=== PATIENT | female | born 1940 | race Caucasian/White ===

== ENCOUNTER → 2024-09-13 10:40 | Outpatient (REF) | payer OTHER, SELFPAY | LOC: RAD 10:40 | PROVIDERS: ATTENDING PHYSICIAN Internal Medicine | DX: R60.0 Localized edema (principal); M25.511 Pain in right shoulder | CPT/HCPCS: 73030; 93971 ==

== ENCOUNTER 2024-09-13 13:48 | Emergency (ER) | payer OTHER, SELFPAY ==
[2024-09-13 13:49] VITALS: BP 198/95
[2024-09-13 16:16] VITALS: BP 143/76
--- NOTE | 2024-09-13 16:26 | ED.GENMED ---
History of Present Illness
General
Chief Complaint: Musculo-Skeletal Complaint
Source: patient
Exam Limitations: none
Time Seen by Provider: 09/13/24 16:17
Nursing documentation reviewed up to this point in time: agreed with
History of Present Illness
History of Present Illness:
This is a 84 y/o female with pmh of hypertension, hyperlipidemia, who presents emergency department today with concerns of right shoulder pain for the past month. Patient does not recall an inciting injury to the pain, she believes she may have
fallen. Patient has been doing PT for this pain. She uses a walker and electric wheelchair at baseline. She started to develop swelling in the arm a few days ago which concerned her. She saw her PCP who ordered a ultrasound of the upper
extremity as well as x-ray. Ultrasound was negative for DVT. X-ray revealed possible humeral head fracture. Patient was sent to the emergency department for further evaluation.
Past History
Past History
ED Past Medical History: Cancer (Endometrial CA s/p internal radiation), HTN, Hypercholesterolemia, Other (PE, DVT) and Other (Morbidly obese)
ED Past Surgical History: Cholecystectomy, Orthopedic and Other
Social History
Tobacco: Non-smoker
Alcohol: None
Drug: None
Personal:
Living: alone ([facility])
Employment: Retired
Family History
Family History: Other (Noncontributory)
Review of Systems
Review of Systems
All Other Systems: ROS reviewed and negative except as documented in HPI and ROS
Phy Exam
Physical Exam
Physical Exam:
General: Patient is well appearing and in no acute distress; non-toxic
Skin: Warm and dry, no rashes or lesions
Head: Normocephalic, atraumatic
Eyes: Sclera non-icteric. EOMs intact.
Cardiac: Regular rate and rhythm, no murmurs
Peripheral Vascular: Right upper extremity swelling noted, 2+ brachial pulse
Pulm: Normal respiratory effort
Musculoskeletal: No bony tenderness palpation of the right shoulder joint. Limited abduction.
Neuro: CN II-XII intact, no focal neurologic deficits. Sensation intact.
Psychiatric: Appropriate mood and affect.
Course
Orders/Labs/Results
Orders:
Orders
09/13/24 16:49
CT Upper Ext W/o Iv Cont Rt Urgent
Comment:
Reason For Exam: Right shoulder pain and swelling
09/13/24 17:51
Acetaminophen [Tylenol] 1,000 mg PO NOW STA
Vital Signs
Initial and Last Documented VS:
Initial Vital Signs
Pulse Resp BP Pulse Ox
53 20 198/95 99
09/13/24 13:49 09/13/24 13:49 09/13/24 13:49 09/13/24 13:49
Last Documented Vital Signs
Temp Pulse Resp BP Pulse Ox
97.4 F 56 20 143/76 96
09/13/24 17:04 09/13/24 16:16 09/13/24 16:16 09/13/24 16:16 09/13/24 16:16
MDM/Problems Addressed
Differential Diagnosis Includes:
shoulder fracture, contusion, dependent edema
MDM/Problems Addressed:
84-year-old female with a past medical history of hypertension, hyperlipidemia was sent to the emergency department today with concerns of right shoulder for the past month. Was sent due to abnormal x-ray. X-ray revealed potential humerus fracture
of the head. Reviewed case with orthopedics considering is a subacute fracture. Recommended CAT scan, patient was sent for CAT scan which revealed severe degenerative changes but no evidence of CT evidence of fracture. Reviewed this with patient.
Patient stable to return home, she lives in independent living at [facility] and is able to get around with her walker without any issue. Patient stable for discharge.
*Pulse Oximetry
Patient hypoxic: no
*Critical Care Note
Total Time (30-74mins, 75-104mins- exclusive of procedures): Not Applicable
Data Reviewed
Review of Other/Old Records Reveals: Records (Reviewed ER physician augmentation from 04/30/2023 patient seen for umbilical hernia, reviewed discharge summary from 03/03/2023 patient seen for abdominal pain and nausea found to have a small bowel
obstruction)
Source: patient and records
Patient Management
Escalation/DeEscalation of care consider admission/obs:
case reviewed with my attending, patient stable for discharge
ED Attending Note
-
Portions of this chart may have been created with voice recognition software.� Occasional wrong word or��sound alike� substitutions may have occurred due to the inherent limitations of voice recognition software.
Discharge Plan
Departure
Patient Disposition: Home (Routine Discharge)
Date of Disposition: 09/13/24
Time of Disposition: 19:51
Patient with high blood pressure during this ER visit?: Yes
Condition: Good
Discharge Problem:
Pain in right shoulder, Swelling
Instructions: Shoulder pain - ED discharge instructions, BLOOD PRESSURE
Prescriptions:
No Action
atorvastatin 10 MG tablet
10 mg PO HS
metoprolol succinate 25 MG tablet extended release 24 hr
25 mg PO DAILY
calcium carbonate [Oyster Shell Calcium 500] 500 MG tablet
500 mg PO DAILY
gabapentin 100 mg capsule
100 mg PO TID Qty: 30 0RF
cholecalciferol (vitamin D3) 25 mcg (1,000 unit) Tablet
25 mcg PO DAILY
Eliquis 5 mg tablet
5 mg PO BID
cyanocobalamin (vitamin B-12) 1,000 mcg Tablet
1,000 mcg PO DAILY
levocetirizine [Xyzal] 5 mg Tablet
5 mg PO HS
oxybutynin chloride 10 mg Tablet Extended Release 24hr
10 mg PO HS
miconazole nitrate 2 % Cream
1 applic TOPICAL DAILY
sennosides [senna] 8.6 mg tablet
8.6 mg PO DAILY
miconazole nitrate [Miconazorb AF] 2 % powder
1 applic topical DAILY
Referrals:
Gale Tobin, [Family Provider] -
Activity Restrictions/Additional Instructions:
Please follow up with your primary care provider.
Please continue physical therapy.
PLEASE RETURN EMERGENCY DEPARTMENT SHOULD YOU DEVELOP INABILITY TO AMBULATE, ACUTE WORSENING OF YOUR PAIN, CHEST PAIN, SHORTNESS OF BREATH, WEAKNESS IN ONE-SIDED BODY VERSUS OTHER, OR ANY OTHER SIGNS OR SYMPTOMS WORRISOME TO YOU
Interventions
Interventions:
*Risk Screen - Suicide Last Done: 09/13/24 13:49
*General Assessment Last Done: 09/13/24 13:49
*ED COVID-19 Vaccine History Last Done: 09/13/24 13:49
*Nursing Disposition Last Done: 09/13/24 20:35
ED-Musculoskeletal Assessment Last Done: 09/13/24 17:04
Discharge Date and Time
Discharge Date/Time: 09/13/24 20:36
Print Language: MAORI
[2024-09-13] MEDS: TYLENOL 1000 MG PO (18:07)
== END 2024-09-13 20:36 | disposition home or self-care (01) ==
LOC: EMR 13:48
PROVIDERS: EMERGENCY PHYSICIAN Emergency Medicine; FAMILY PHYSICIAN Internal Medicine
DX: M19.011 Primary osteoarthritis, right shoulder (principal); E78.00 Pure hypercholesterolemia, unspecified; I10 Essential (primary) hypertension; Z86.718 Personal history of other venous thrombosis and embolism; Z90.49 Acquired absence of other specified parts of digestive tract
CPT/HCPCS: 99284; 73200

== ENCOUNTER → 2024-10-10 13:53 | Outpatient (REF) | payer OTHER, SELFPAY | LOC: HWWDC 13:53 | PROVIDERS: ATTENDING PHYSICIAN Internal Medicine | DX: Z12.31 Encounter for screening mammogram for malignant neoplasm of breast (principal) | CPT/HCPCS: 77063; 77067 ==

== ENCOUNTER 2024-11-13 06:04 | Emergency (ER) | payer OTHER, SELFPAY ==
[2024-11-13] VITALS (16 sets, daily range): BP systolic 115–144; BP diastolic 45–100; PULSE 68–80; O2SAT 91–95; BMI 57.2
--- NOTE | 2024-11-13 06:23 | ED.MUSCINJ ---
HPI-Injury
General
Chief Complaint: Fall
Source: patient
Exam Limitations: none
Time Seen by Provider: 11/13/24 06:10
History of Present Illness-Injury
Initial Injury comments:
84-year-old female on Eliquis for history of pulmonary embolism presents from [facility] independent living via EMS weakness and a fall. She went to sit on her chair and her legs felt weak and she missed her chair. She denies any injury
sustained from the fall. This is her second fall in 3 days. She does note an ongoing nagging cough. She denies fever. She denies urinary symptoms. She notes a decreased appetite. She typically ambulates with a walker or electric wheelchair. No
other complaints.
Past History
Past History
ED Past Medical History: Cancer (Endometrial CA s/p internal radiation), HTN, Hypercholesterolemia, Other (PE, DVT) and Other (Morbidly obese)
ED Past Surgical History: Cholecystectomy, Orthopedic and Other
Social History
Tobacco: Non-smoker
Alcohol: None
Drug: None
Personal:
Living: alone ([facility])
Employment: Retired
Family History
Family History: Other (Noncontributory)
Phy Exam
Physical Exam
Physical Exam:
General: Well developed, obese female no acute distress
HEENT: NC, no signs of trauma
Heart: RRR, no murmurs
Lungs: Body habitus limits exam but no obvious wheeze or rales
Ext: No cyanosis, mild pitting edema
Neuro: alert and oriented, no unilateral weakness noted
skin: Warm, no rash
Injury Course
Orders/Labs/Results
Orders:
Orders
11/13/24 06:22
CT Head W/o Iv Contrast Urgent
Comment:
Reason For Exam: falls, weakness
CR Chest - 2 Views Urgent
Comment:
Reason For Exam: cough
11/13/24 06:44
Orthostatic VS- Treatment ONCE
PT Consult [Pt Eval And Treat] Urgent
Activity Level: Ambulate
11/13/24 07:07
COVID-19 Antigen Urgent
Source: Nasal Swab
Complete Blood Count/With Diff Urgent
Influenza A+B Rapid Molecular Urgent
[place] Source: Nasal Swab
Specimen Description:
11/13/24 10:16
Case Management Consult ONCE
Case Management Consult: Discharge Planning
11/13/24 11:00
Occupational Therapy Consult [Ot Eval And Treat] Urgent
11/13/24 13:23
Basic Metabolic Panel Urgent
11/13/24 14:16
Calcium Carbonate [Oscal Jan 500] 500 mg PO NOW STA
Abnormal Lab Results
11/13/24 11/13/24
07:07 13:23
WBC 11.4 H 10^3/uL
(4.8-10.8)
RBC 3.82 L 10^6/uL
(4.20-5.40)
Hgb 10.6 L g/dL
(12.0-16.0)
Hct 33.5 L %
(37.0-47.0)
MCHC 31.6 L g/dL
(33.0-37.0)
RDW 14.8 H %
(11.5-14.5)
Abs Immat Gran (auto) 0.1 H 10^3/uL
(0-0.05)
Absolute Neuts (auto) 10.0 H 10^3/uL
(1.4-6.5)
Absolute Lymphs (auto) 0.5 L 10^3/uL
(1.2-3.4)
Absolute Monos (auto) 0.8 H 10^3/uL
(0.1-0.6)
Neutrophils % 87.4 H %
(42.2-75.2)
Lymphocytes % 4.5 L %
(20.5-51.1)
Chloride 112 H mmol/L
(98-107)
Carbon Dioxide 21 L mmol/L
(22-30)
BUN 33 H mg/dl
(7-17)
Calcium 6.8 L* mg/dl
(8.4-10.2)
11/13/24 07:07
11/13/24 13:23
MDM/Problems Addressed
Differential Diagnosis Includes:
Patient here with 2 falls in 3 days and generalized weakness. No specific finding or localizing finding on exam. Differential is broad but includes electrolyte abnormality versus anemia versus infectious cause. Patient is on Eliquis and she has
been following, worried about intracranial injury. CT of the head pending basic labs chest x-ray COVID flu urinalysis pending
*Critical Care Note
Total Time (30-74mins, 75-104mins- exclusive of procedures): Not Applicable
Update Note
Update Note:
Workup mostly unrevealing. CT head negative chest x-ray without concerning findings. Patient seen and evaluated by physical therapy requires maximal assist just to get out of bed and was unable to ambulate. She felt weak on her feet. Not stable
for discharge back to independent living at [facility]. Consult case management for potential rehab placement
Case management able to place the patient into intermediate at [facility]. Transport arranged.
ED Attending Note
-
Portions of this chart may have been created with voice recognition software.� Occasional wrong word or��sound alike� substitutions may have occurred due to the inherent limitations of voice recognition software.
Discharge Plan
Departure
Patient Disposition: Acute Rehab Facility
Date of Disposition: 11/13/24
Time of Disposition: 13:36
Discharge Problem:
Weakness
Prescriptions:
No Action
atorvastatin 10 MG tablet
10 mg PO DAILY
metoprolol succinate 25 MG tablet extended release 24 hr
25 mg PO DAILY
gabapentin 100 mg capsule
100 mg PO TID Qty: 30 0RF
Eliquis 5 mg tablet
5 mg PO BID
cyanocobalamin (vitamin B-12) 1,000 mcg Tablet
1,000 mcg PO MOWEFR
levocetirizine [Xyzal] 5 mg Tablet
5 mg PO QPM
oxybutynin chloride 10 mg Tablet Extended Release 24hr
10 mg PO DAILY
acetaminophen [Tylenol Extra Strength] 500 mg Tablet
1,000 mg PO BID
bismuth subsalicylate [Kaopectate (bismuth subsalicy)] 262 mg/15 mL Suspension
524 mg PO ACHS
lidocaine HCl [Aspercreme (lidocaine HCl)] 4 % Cream
1 applic TOPICAL TID
Rx Instructions:
apply to R shoulder
Referrals:
Gale Tobin DO [Family Provider] -
Activity Restrictions/Additional Instructions:
Please seek further treatment at rehab facility. Your calcium was low. Please continue to take calcium daily and recheck blood work next week
Interventions
Interventions:
*Risk Screen - Suicide Last Done: 11/13/24 14:30
*General Assessment Last Done: 11/13/24 06:06
*Neglect/Abuse Screening Last Done: 11/13/24 06:06
*ED- Fall Risk Assessment Last Done: 11/13/24 06:06
*ED COVID-19 Vaccine History Last Done: 11/13/24 06:06
*Nursing Disposition Last Done: 11/13/24 14:30
ED-Musculoskeletal Assessment Last Done: 11/13/24 07:30
ED- Neurological Assessment Last Done: 11/13/24 07:30
ED-Skin Assessment Last Done: 11/13/24 09:13
Discharge Date and Time
Discharge Date/Time: 11/13/24 14:30
Print Language: SWEDISH
[2024-11-13 07:38] LABS: Hematocrit 33.5 % (37.0-47.0); Hemoglobin 10.6 g/dL (12.0-16.0); Mean Corp Hgb Conc. 31.6 g/dL (33.0-37.0); Mean Corpuscular Hgb 27.7 pg (27.0-31.0); Mean Corpuscular Volume 87.7 fL (81.0-99.0); Mean Platelet Volume 10.1 fL (7.4-10.4); Platelet Count 331 10^3/uL (130-400); Red Blood Cell Count 3.82 10^6/uL (4.20-5.40); Red Cell Dist. Width 14.8 % (11.5-14.5); White Blood Cell Count 11.4 10^3/uL (4.8-10.8)
[2024-11-13 08:02] LABS: COVID-19 Antigen Negative (Negative)
[2024-11-13 08:04] LABS: % Basophils 0.3 % (0-2); % Eosinophils 0.1 % (0-6); % Immature Granulocytes 0.5 % (0-0.5); % Lymphocytes 4.5 % (20.5-51.1); % Monocytes 7.2 % (1.7-9.3); % Neutrophils 87.4 % (42.2-75.2); Absolute Immature Granulocytes 0.1 10^3/uL (0-0.05); Absolute Lymphocytes 0.5 10^3/uL (1.2-3.4); Absolute Monocytes 0.8 10^3/uL (0.1-0.6); Nucleated Red Blood Cells % 0 %
--- NOTE | 2024-11-13 11:14 | CM ---
Addendum entered by Lorrie Acuna 11/13/24 13:21:
Pt accepted for admission to [facility] today
SNF will obtain [facility] auth and order nicole bed which will be available tomorrow
BLS scheduled with Acute Care and medical necessity on chart
Discharge Disposition- [facility] SNF via BLS (1400 pickup)
Phone- [phone]
Original Note:
ED CM consult for dc planning
Pt from [facility] where she resides alone
She is indep with transfers and ambulation in her home with use of a rollator
She utilizes her power wheelchair while outside of the home
Pt is on 1.5 L O2 nocturnal through her cpap ([employer])
She pays for a [employer] 3x weekly for bathing assistance
Current with outpt PT/OT through [facility]
SNF recs per PT
Pt brigitte greement with placement at [facility]
Call with admissions/Anastasia-referral sent via [facility]
OT eval requested for [facility] auth
Discharge Disposition- anticipate [facility]
[2024-11-13 13:56] LABS: Blood Urea Nitrogen 33 mg/dl (7-17); Calcium 6.8 mg/dl (8.4-10.2); Carbon Dioxide 21 mmol/L (22-30); Chloride 112 mmol/L (98-107); Estimated Creatinine Clearance 104 ml/min; Glucose 95 mg/dl (70-99); Sodium 138 mmol/L (135-145); eGFR > 60.00
[2024-11-13] MEDS: OSCAL CAL 500 500 MG PO (14:26)
== END 2024-11-13 14:30 ==
LOC: EMR 06:04
PROVIDERS: Physician Assistant; EMERGENCY PHYSICIAN Emergency Medicine; FAMILY PHYSICIAN Internal Medicine
DX: R53.1 Weakness (principal); I10 Essential (primary) hypertension; E78.00 Pure hypercholesterolemia, unspecified; Z86.718 Personal history of other venous thrombosis and embolism; Z86.711 Personal history of pulmonary embolism; Z79.01 Long term (current) use of anticoagulants; Z90.49 Acquired absence of other specified parts of digestive tract; Z11.52 Encounter for screening for COVID-19
CPT/HCPCS: 99284; 70450; 71046; 80048; 85025; 87502; 87811

== ENCOUNTER 2024-12-03 16:06 | Emergency (ER) | payer OTHER, SELFPAY ==
[2024-12-03 16:10] VITALS: BP 139/51; BMI 59.7
--- NOTE | 2024-12-03 16:16 | ED.GENMED ---
History of Present Illness
General
Chief Complaint: Fall
Source: patient, records and ambulance crew
Exam Limitations: none
Time Seen by Provider: 12/03/24 16:16
Nursing documentation reviewed up to this point in time: agreed with
History of Present Illness
History of Present Illness:
84-year-old female with history as noted presents to the emergency room from [facility] for evaluation after a slip and fall. Patient reports that she was going to the bathroom and unfortunately had some diarrhea and leaked stool onto the floor
before she could get onto the toilet. She says that she does have diarrhea from time to time and this is not necessarily unusual. She says that her daughter was with her and recommended she get in the shower to wash up. While patient was getting
into the shower she slipped and fell onto her bottom. She does not believe she hit her head, did not lose consciousness. She denies any significant complaints but did have to call EMS for lift assist. They recommended she come for hospital
evaluation given she is on blood thinners. She takes Eliquis for history of DVT. She denies any headache, neck pain, back pain, chest pain, pain in her extremities.
Past History
Past History
ED Past Medical History: Cancer (Endometrial CA s/p internal radiation), HTN, Hypercholesterolemia, Other (PE, DVT) and Other (Morbidly obese)
ED Past Surgical History: Cholecystectomy, Orthopedic and Other
Social History
Tobacco: Non-smoker
Alcohol: None
Drug: None
Personal:
Living: alone ([facility])
Employment: Retired
Family History
Family History: Other (Noncontributory)
Review of Systems
Review of Systems
All Other Systems: ROS reviewed and negative except as documented in HPI and ROS
Cardiac: Denies chest pain
ABD/GI: Denies abdominal pain or nausea
Musculoskeletal: Denies joint pain, neck pain or back pain
Neurological: Denies dizzy or headache
Phy Exam
Physical Exam
Physical Exam:
General: Awake, alert, oriented x3; no acute distress
Head: Normocephalic, atraumatic
Eyes: Conjunctiva normal, EOMI
Throat: Airway intact, handling secretions
Neck: Trachea midline, no cervical spine tenderness, full range of motion of the neck without pain
Back: No signs of trauma to the back or flank and no midline thoracic or lumbar tenderness
Lungs: Breathing comfortably no distress
Heart: Regular rate; no chest wall tenderness
Abd: Obese but soft, non distended, nontender
Neuro: No gross deficits
Skin: No lacerations or abrasions noted
Extremities: Atraumatic, no tenderness, allows for passive range of motion in the arms and legs without pain, extremities are warm and well-perfused
Scores
Heart Failure Risk
Heart Failure Risk Score: Not Applicable
Heart Score for Chest Pain Patients
STEMI patient?: Not applicable
Withdrawal Assessment of Alcohol
Withdrawal Assessment Completed?: Not applicable
Course
Orders/Labs/Results
Orders:
Orders
12/03/24 16:16
CT Head W/o Iv Contrast Urgent
Comment:
Reason For Exam: fall on blood thinners
CR Pelvis Comp Min 3 Views Urgent
Comment:
Reason For Exam: fall onto bottom
Vital Signs
Initial and Last Documented VS:
Initial Vital Signs
Temp Pulse Resp BP Pulse Ox
36.6 C 59 17 139/51 98
12/03/24 16:10 12/03/24 16:10 12/03/24 16:10 12/03/24 16:10 12/03/24 16:10
Last Documented Vital Signs
Temp Pulse Resp BP Pulse Ox
36.6 C 59 17 139/51 98
12/03/24 16:10 12/03/24 16:10 12/03/24 16:10 12/03/24 16:10 12/03/24 16:10
MDM/Problems Addressed
Differential Diagnosis Includes:
Fall on blood thinners�concern would be for mainly traumatic head injury
MDM/Problems Addressed:
84-year-old female presents after slip and fall; she is on blood thinners. He denies any acute complaints has not noted any injuries since the fall but given she is on blood thinners she came in for assessment. She denies any head strike but it
sounds like she fell with significant force onto her bottom�will check CT head as an abundance of caution. Similarly I think it would be reasonable to check x-ray of the pelvis based on mechanism and force. Will monitor and reassess after the
above.
CT head no acute pathology. X-ray the pelvis no fractures. Stable for discharge patient remains awake alert with no complaints.
Chronic conditions affecting care:
Obesity, PE on Eliquis
*Radiology
Radiology exam reviewed: radiology read reviewed
*Pulse Oximetry
Patient hypoxic: no
*Critical Care Note
Total Time (30-74mins, 75-104mins- exclusive of procedures): Not Applicable
Data Reviewed
Source: patient, records and ambulance crew
ED Attending Note
-
Portions of this chart may have been created with voice recognition software.� Occasional wrong word or��sound alike� substitutions may have occurred due to the inherent limitations of voice recognition software.
Discharge Plan
Departure
Patient Disposition: Home (Routine Discharge)
Date of Disposition: 12/03/24
Time of Disposition: 18:05
Patient with high blood pressure during this ER visit?: No
Discharge Problem:
Accident due to mechanical fall without injury
Instructions: Preventing falls in adults
Prescriptions:
No Action
atorvastatin 10 MG tablet
10 mg PO DAILY
metoprolol succinate 25 MG tablet extended release 24 hr
25 mg PO DAILY
gabapentin 100 mg capsule
100 mg PO TID Qty: 30 0RF
Eliquis 5 mg tablet
5 mg PO BID
cyanocobalamin (vitamin B-12) 1,000 mcg Tablet
1,000 mcg PO MOWEFR
levocetirizine [Xyzal] 5 mg Tablet
5 mg PO QPM
oxybutynin chloride 10 mg Tablet Extended Release 24hr
10 mg PO DAILY
acetaminophen [Tylenol Extra Strength] 500 mg Tablet
1,000 mg PO BID
bismuth subsalicylate [Kaopectate (bismuth subsalicy)] 262 mg/15 mL Suspension
524 mg PO ACHS
lidocaine HCl [Aspercreme (lidocaine HCl)] 4 % Cream
1 applic TOPICAL TID
Rx Instructions:
apply to R shoulder
Referrals:
Gale Tobin, DO [Family Provider] - As needed
Activity Restrictions/Additional Instructions:
Thank you for visiting the Emergency Department at [facility].
1. Please schedule a follow up appointment as directed. Call first thing tomorrow morning to make an appointment.
2. If indicated, please take your medications as instructed and indicated on discharge paperwork.
3. If any of your symptoms do not improve, or persist, or become more severe within 6-12 hours, please return to the emergency department for further care.
4. Please return to the emergency department if you develop a headache, neck pain/stiffness, fever greater than 100.4F, chest pain, shortness of breath, persistent nausea, vomiting, slurred speech, difficulty walking, numbness/tingling, weakness,
signs of infection or any other symptoms that are worrisome to you.
Please call [phone] if you have any questions.
Interventions
Interventions:
*Risk Screen - Suicide Last Done: 12/03/24 16:10
*General Assessment Last Done: 12/03/24 16:10
*Neglect/Abuse Screening Last Done: 12/03/24 16:10
*ED- Fall Risk Assessment Last Done: 12/03/24 16:10
ED-Musculoskeletal Assessment Last Done: 12/03/24 16:37
ED- Neurological Assessment Last Done: 12/03/24 16:37
ED-Skin Assessment Last Done: 12/03/24 16:37
Discharge Date and Time
Print Language: MAURITANIAN
[2024-12-03 21:17] VITALS: BP 138/50
== END 2024-12-03 21:20 | disposition home or self-care (01) ==
LOC: EMR 16:06
PROVIDERS: EMERGENCY PHYSICIAN Emergency Medicine; FAMILY PHYSICIAN Internal Medicine
DX: S39.93XA Unspecified injury of pelvis, initial encounter (principal); R19.7 Diarrhea, unspecified; W01.0XXA Fall on same level from slipping, tripping and stumbling without subsequent striking against object, initial encounter; Y93.01 Activity, walking, marching and hiking; Y92.89 Other specified places as the place of occurrence of the external cause; E78.00 Pure hypercholesterolemia, unspecified; E66.01 Morbid (severe) obesity due to excess calories; M19.90 Unspecified osteoarthritis, unspecified site; I12.9 Hypertensive chronic kidney disease with stage 1 through stage 4 chronic kidney disease, or unspecified chronic kidney disease; N18.2 Chronic kidney disease, stage 2 (mild); F41.9 Anxiety disorder, unspecified; F32.A Depression, unspecified; Z79.01 Long term (current) use of anticoagulants; Z99.81 Dependence on supplemental oxygen; Z86.718 Personal history of other venous thrombosis and embolism; Z86.711 Personal history of pulmonary embolism; Z85.42 Personal history of malignant neoplasm of other parts of uterus; Z90.49 Acquired absence of other specified parts of digestive tract; Z88.5 Allergy status to narcotic agent; Z88.0 Allergy status to penicillin; Z91.040 Latex allergy status
CPT/HCPCS: 99284; 70450; 72190

== ENCOUNTER 2025-01-22 16:40 | Inpatient (IN) | payer OTHER, SELFPAY ==
[2025-01-22] VITALS (9 sets, daily range): BP systolic 135–196; BP diastolic 48–89; BMI 59.3; BMI 57.3
[2025-01-22 13:28] LABS: Hematocrit 30.2 % (37.0-47.0); Hemoglobin 8.9 g/dL (12.0-16.0); Mean Corp Hgb Conc. 29.5 g/dL (33.0-37.0); Mean Corpuscular Volume 83.2 fL (81.0-99.0); Nucleated Red Blood Cells % 0 %; Platelet Count 320 10^3/uL (130-400); Red Cell Dist. Width 15.9 % (11.5-14.5)
[2025-01-22 13:58] LABS: ALT (SGPT) 10 U/L (0-35); AST (SGOT) 16 U/L (14-36); Albumin 3.7 g/dl (3.5-5.0); Alkaline Phosphatase 108 U/L (38-126); Blood Urea Nitrogen 19 mg/dl (7-17); Calcium 9.6 mg/dl (8.4-10.2); Carbon Dioxide 34 mmol/L (22-30); Chloride 102 mmol/L (98-107); Estimated Creatinine Clearance 100 ml/min; Glucose 124 mg/dl (70-99); Potassium 4.9 mmol/L (3.5-5.1); Sodium 138 mmol/L (135-145); Total Protein 6.4 g/dl (6.3-8.2); eGFR > 60.00
--- NOTE | 2025-01-22 14:58 | ED.GENMED ---
History of Present Illness
General
Chief Complaint: Breathing Problem
Source: patient
Exam Limitations: none
Time Seen by Provider: 01/22/25 14:21
Nursing documentation reviewed up to this point in time: agreed with
History of Present Illness
History of Present Illness:
84-year-old female
With a history of morbid obesity, hypertension, PE on Eliquis, edema on Bumex who presents for increasing shortness of breath especially on exertion over the last couple of weeks. Patient had been seen on 5�11 for a mechanical fall and was in PT OT
since then for some shoulder discomfort. Patient has noticed that with activity over the last week she has had some windedness. Specifically this morning the patient got up to just get to her chair which is very short distance patient was very
short of breath. She wears oxygen through her CPAP only 1.5 l at night and otherwise does not need oxygen during the day.
She has seen the physician at [facility] within the last 2 weeks for some of this dyspnea on exertion who was concerned and wanted her to have an outpatient chest abdomen pelvis CT which the patient has not had yet. They also are noticing that her
hemoglobin is dropping. Our records show that it was 10 back in October and now it is 8.9. She has not noticed any dark stool.
But she does report significant edema in her legs and abdomen, she also is noncompliant with her Bumex because she has to get up and go to the bathroom when she uses it so she does not take it at all. She does noticed that her legs look
significantly more swollen than usual. Patient is very compliant with her Eliquis however.
Past History
Past History
ED Past Medical History: Cancer (Endometrial CA s/p internal radiation), HTN, Hypercholesterolemia, Other (PE, DVT) and Other (Morbidly obese)
ED Past Surgical History: Cholecystectomy, Orthopedic and Other
Social History
Tobacco: Non-smoker
Alcohol: None
Drug: None
Personal:
Living: alone ([facility])
Employment: Retired
Family History
Family History: Other (Noncontributory)
Review of Systems
Review of Systems
Allergies reviewed?: Yes
All Other Systems: Not applicable
Phy Exam
Physical Exam
Physical Exam:
GENERAL: Alert , elevated BMI
EYE: pupils equal and reactive
NECK: Supple
ENT: o/p clr, mmm.
CARDIAC: Regular rate and rhythm .
LUNGS: Diminished, crackles at bases, significant bilateral lower extremity edema
ABDOMEN: Soft, without focal tenderness, no r/g, no cvat, normal bowel sounds
NEUROLOGICAL: Alert and oriented, no focal neuro deficits
SKIN: Warm and dry, skin intact.
MUSCULOSKELETAL: Severe edema, lymphedema , neg anette's sign
PSYCH: Normal and appropriate interaction.
Course
Orders/Labs/Results
Orders:
Orders
01/22/25 12:52
Electrocardiogram (*1) Urgent
Reason for Study: Other
Other Reason for Exam: Respiratory Distress
EKG- Treatment ONCE
O2 Therapy [RESP] Urgent
Titrate/Wean O2 to maintain O2 sat greater than (%): 93
Special Instructions: TO MAINTAIN CONTINUOUS O2 SATS >/= 93%
01/22/25 13:12
Complete Blood Count/With Diff Urgent
Comprehensive Metabolic Panel Urgent
NT-proBNP Urgent
01/22/25 14:57
Pantoprazole [Protonix IV] 40 mg IV NOW STA
01/22/25 14:58
CR Chest Portable - 1 View Urgent
Comment:
Reason For Exam: sob, edema
Reason Study Needs to be Portable: Unable to Transport
01/22/25 15:06
Sterile Water [Sterile Water For Injection] 10 ml .ROUTE .[facility]-MED ONE
01/22/25 15:35
Bumetanide [Bumex] 1 mg IV NOW STA
Abnormal Lab Results
01/22/25
13:12
RBC 3.63 L 10^6/uL
(4.20-5.40)
Hgb 8.9 L g/dL
(12.0-16.0)
Hct 30.2 L %
(37.0-47.0)
MCH 24.5 L pg
(27.0-31.0)
MCHC 29.5 L g/dL
(33.0-37.0)
RDW 15.9 H %
(11.5-14.5)
Absolute Lymphs (auto) 0.8 L 10^3/uL
(1.2-3.4)
Absolute Monos (auto) 0.7 H 10^3/uL
(0.1-0.6)
Lymphocytes % 12.3 L %
(20.5-51.1)
Monocytes % 9.5 H %
(1.7-9.3)
Carbon Dioxide 34 H mmol/L
(22-30)
BUN 19 H mg/dl
(7-17)
Glucose 124 H mg/dl
(70-99)
01/22/25 13:12
01/22/25 13:12
Vital Signs
Initial and Last Documented VS:
Initial Vital Signs
Temp Pulse Resp BP Pulse Ox
36.6 C 59 20 158/66 89
01/22/25 12:55 01/22/25 12:55 01/22/25 12:55 01/22/25 12:55 01/22/25 12:55
Last Documented Vital Signs
Temp Pulse Resp BP Pulse Ox
36.6 C 62 13 171/84 96
01/22/25 12:55 01/22/25 15:00 01/22/25 15:00 01/22/25 14:00 01/22/25 15:03
MDM/Problems Addressed
Differential Diagnosis Includes:
CHF, pneumonia, sleep apnea, less likely PE, deconditioning
MDM/Problems Addressed:
84-year-old female, morbidly obese from [place] run normally not needing oxygen except for during the night through her CPAP, history of PE on Eliquis presents for significant shortness of breath on exertion over the last 2 weeks, worse specifically
today without chest pain. She has significant lymphedema which is worse than usual she says but she is noncompliant with her Bumex because of the fact that it is difficult for her to get up
Patient is not having any chest pain. She does have a slight cough. She has not noticed any black stool but has had downtrending hemoglobins and is heme positive here light brown stool. Patient is stable on 2 L but has crackles in her bases and
clearly is fluid overloaded. Her BNP is likely falsely normal due to her BMI. Will obtain x-ray and admit
*Pulse Oximetry
SaO2: 96
Nasal Cannula flow liters per minute: 2
Oxygen Mode of Delivery: Room air
ED Attending Note
-
Portions of this chart may have been created with voice recognition software.� Occasional wrong word or��sound alike� substitutions may have occurred due to the inherent limitations of voice recognition software.
Discharge Plan
Departure
Patient Disposition: Admit
Date of Disposition: 01/22/25
Time of Disposition: 15:35
Admit to: Telemetry
Presentation/result/management discussed w/ accepting MD/DO: Hospitalist
Covid-19: Not Applicable
Discharge Problem:
Pulmonary edema, Hypoxia, Anemia, Heme positive stool
Prescriptions:
No Action
atorvastatin 10 MG tablet
10 mg PO DAILY
metoprolol succinate 25 MG tablet extended release 24 hr
25 mg PO DAILY
gabapentin 100 mg capsule
100 mg PO TID Qty: 30 0RF
Eliquis 5 mg tablet
5 mg PO BID
cyanocobalamin (vitamin B-12) 1,000 mcg Tablet
1,000 mcg PO MOWEFR
levocetirizine [Xyzal] 5 mg Tablet
5 mg PO QPM
oxybutynin chloride 10 mg Tablet Extended Release 24hr
10 mg PO DAILY
acetaminophen [Tylenol Extra Strength] 500 mg Tablet
1,000 mg PO BID
bismuth subsalicylate [Kaopectate (bismuth subsalicy)] 262 mg/15 mL Suspension
524 mg PO ACHS
lidocaine HCl [Aspercreme (lidocaine HCl)] 4 % Cream
1 applic TOPICAL TID
Rx Instructions:
apply to R shoulder
Referrals:
Gale Tobin DO [Family Provider, Internal Medicine]
Interventions
Interventions:
*Risk Screen - Suicide Last Done: 01/22/25 12:55
*General Assessment Last Done: 01/22/25 12:55
*Neglect/Abuse Screening Last Done: 01/22/25 12:55
*ED- Fall Risk Assessment Last Done: 01/22/25 12:55
*ED COVID-19 Vaccine History Last Done: 01/22/25 12:55
ED- Cardiac Assessment Last Done: 01/22/25 14:57
ED- Pulmonary Assessment Last Done: 01/22/25 12:55
Discharge Date and Time
Print Language: KYRGYZ
[2025-01-22] MEDS: PROTONIX IV 40 MG IV (15:14)
--- NOTE | 2025-01-22 15:39 | HPS.HSE ---
Family Physician
-
Family Physician: Gale Tobin
Chief Complaint
-
exertional dyspnea
History of Present Illness
Patient is a 84-year-old female with past medical history significant for hypertension, hyperlipidemia, morbid obesity, Hx pulmonary embolism and Hx endometrial cancer who presented to [facility] ED for evaluation of increased exertional dyspnea. Patient
reports seeing PT/OT regularly at [facility] where she resides in independent living. Patient has been seeing PT/OT since recent fall 12/03/2024. She reports that during therapy sessions she is noticing increased shortness of breath over the past
week. This morning when getting ready for appointment with therapy she reported getting exertional dyspnea with minimal movement from bed to chair. She called to cancel therapy and therapist recommended she seek an appointment with medical office.
She was seen in medical office where primary referred her to ED for further evaluation. Patient denies any fever, chills, chest pain, nausea, vomting, constipation, diarrhea or urinary symptoms. Patient has order for Bumex, which she reports was
ordered PRN and she does state she has not taken it in a long time.
Medical History
Past Medical History
Past Medical History: Reports Other
Additional Past Medical History:
hypertension
hyperlipidemia
morbid obesity
Hx pulmonary embolism
Hx endometrial cancer
Past Surgical History: Reports Other
Additional Past Surgical History:
cholecystectomy
b/l Knee replacement
Social History
Tobacco: Former Smoker
Alcohol: None
Drug: None
Personal: Single
Living: Alone
Employment: Retired
Family History
Family History: Not pertinent
Allergies / Home Medications
Allergies reflects when Allergies were last updated in [facility].
Home Medications with original date entered in [facility]
Allergy/Medication List:
Allergies
Allergy/AdvReac Type Severity Reaction Status Date / Time
codeine Allergy Unknown Verified 01/22/25 13:11
latex Allergy Unknown Verified 01/22/25 13:11
morphine Allergy Unknown Verified 01/22/25 13:11
Penicillins Allergy Unknown Verified 01/22/25 13:11
Home Medications
atorvastatin 10 mg tablet 10 mg PO HS High cholesterol 04/19/20
metoprolol succinate 25 mg tablet,extended release 24 hr 25 mg PO DAILY Blood pressure 04/19/20
apixaban 5 mg tablet (Eliquis) 5 mg PO BID Blood clot prevention/tx 09/21/22
cyanocobalamin (vitamin B-12) 1,000 mcg tablet 1,000 mcg PO MOWEFR Supplement 09/21/22
levocetirizine 5 mg tablet (Xyzal) 5 mg PO HS 09/21/22
oxybutynin chloride 10 mg tablet,extended release 24 hr 10 mg PO HS 02/24/23
acetaminophen 500 mg tablet (Tylenol Extra Strength) 1,000 mg PO BID 11/13/24
Calcium 600 + D(3) 1 tab PO BID 01/22/25
duloxetine 20 mg capsule,delayed release 20 mg PO DAILY 01/22/25
gabapentin 100 mg capsule 100 mg PO BID 01/22/25
guaifenesin 600 mg tablet, extended release 12 hr (Mucinex) 600 mg PO DAILY 01/22/25
miconazole nitrate 2 % topical powder 1 applic topical DAILY under B/L breasts 01/22/25
nystatin 100,000 unit/gram topical cream 1 applic topical BID left leg 01/22/25
Review of Systems
-
History Source: Patient
Constitutional: Reports No Symptoms
EENT: Reports No Symptoms
Respiratory: Reports Cough (moist productive cough ) and Trouble Breathing (exertional dyspnea )
Cardiac: Reports No Symptoms
Abdomen/GI: Reports No Symptoms
: Reports No Symptoms
Musculoskeletal: Reports No Symptoms
Skin: Reports No Symptoms
Neurological: Reports No Symptoms
Endocrine: Reports No Symptoms
Hematologic/Lymphatic: Reports No Symptoms
Psych: Reports No Symptoms
Physical Exam
Vital Signs
Vital Signs
Temp Pulse Resp BP Pulse Ox
97.8 F 62 13 171/84 96
01/22/25 12:55 01/22/25 15:00 01/22/25 15:00 01/22/25 14:00 01/22/25 15:03
Physical Exam
General: Well Developed, Well Nourished, Conversant and Morbidly Obese
HEENT: NormoCephalic, Moist mucous membranes, Atraumatic, Nose Appears Normal and Ears Appear Normal
Respiratory: Clear, Crackles and Decreased Breath Sounds
Cardiac: S1/S2 and Regular Rhythm
Breast: Deferred by me
GI: Soft, Non Tender, Non Distended and Normal Bowel Sounds
Rectal: Deferred by Provider
Genito-urinary: Deferred by me
Musculoskeletal: No Clubbing, No Cyanosis, Edema, Left Lower Extremity and Edema, Right Lower Extremity
Skin: IV/Catheter Site
Neuro: Awake, Alert, AO x 3 and Nonfocal/grossly intact
Psych: Calm
Laboratory Results
-
01/22/25 13:12
01/22/25 13:12
Laboratory Results
Total Bilirubin 0.6 mg/dl (0.2-1.3) 01/22/25 13:12
AST 16 U/L (14-36) 01/22/25 13:12
ALT 10 U/L (0-35) 01/22/25 13:12
Alkaline Phosphatase 108 U/L (38-126) 01/22/25 13:12
Data Reviewed
-
Medical Tests (Nuc Med, Echo, EKG etc): Report Reviewed by me (EKG: ATRIAL FLUTTER ABNORMAL ECG)
Lab Data: Labs Reviewed by me (hgb 8.9, hct 30.2, )
Impression/Plan
-
IMPRESSION/PLAN:
#exertional dyspnea likely 2/2 congestive heart failure
non-compliant with Bumex orders
hgb 8.9, hct 30.2, BNP 415
Hemoccult: positive
EKG:ATRIAL FLUTTER
CXR: 1. No acute pulmonary process identified.
2. Unchanged cardiomegaly.
- Admit to Telemetry
- Consult Cardiology
- ECHO in AM
- IV Bumex
- daily weights
- I & Os
#anemia
hgb 8.9, hct 30.2
Hemoccult: positive
- trend H/H
- hold Eliquis
- iron studies
- IV Protonix BID
- Consult GI
#hypertension
- continue metoprolol
- restart Bumex
- PRN Hydralazine
#hyperlipidemia
- continue atorvastatin
#morbid obesity
- affects all aspects of care
- encourage diet and exercise to promote weight loss
#overactive bladder
- continue oxybutynin
#Hx pulmonary embolism
- hold Eliquis
#Hx endometrial cancer
Code status: DNR
DVT prophylaxis: SCDs
[2025-01-22] MEDS: BUMEX 1 MG IV (16:07)
--- NOTE | 2025-01-22 16:16 | W.PN.UPDATE ---
Update Note
Progress Note Update
This is an addendum to H&P written by Ashley Phelan on 01/22/2025. �Patient seen and examined independently with [facility].
84-year-old female past medical history of obesity, hypertension, PE with IVC filter on Eliquis, obstructive sleep apnea uses CPAP at night, hyperlipidemia, umbilical hernia, chronic ambulatory dysfunction, osteoarthritis, endometrial cancer status
post radiation, morbid obesity, presenting with shortness of breath with exertion. �Increased leg swelling. �Noncompliant with Bumex.
Her primary recommended outpatient chest abdomen pelvis.
Recent mechanical fall on 12/03.
At [facility] noticed that she was anemic.
Labs show cardiac BNP of 415. �Hemoglobin 8.9 from 10.6 in October. �Chest x-ray shows pulmonary edema but report pending. �Hemoccult positive for blood.
Patient with likely acute CHF exacerbation. �Cardiac BNP likely suppressed due to obesity. Bumex. �Check echocardiogram. �Cardiology consulted.
Worsening anemia unclear etiology. �Likely occult GI bleeding. �Start Protonix 40 twice daily. �Check iron studies, B12 and folate. �Hold Eliquis. �Will defer outpatient CT scan chest abdomen pelvis.
--- NOTE | 2025-01-22 18:40 | PTCARENOTE ---
Received patient from ED via stretcher. Pt AAOX3. Pox: 96% 2LNC. Daughter at bedside. Call greenberg within reach. Plan of care ongoing.
[2025-01-22] MEDS: TYLENOL 1000 MG PO (20:28)
[2025-01-22] MEDS: LIPITOR 10 MG PO (20:28)
[2025-01-22] MEDS: MYCOSTATIN CREAM 1 APPLIC TOPICAL (20:28)
[2025-01-22] MEDS: ZYRTEC 10 MG PO (20:28)
[2025-01-22] MEDS: NEURONTIN 100 MG PO (20:28)
[2025-01-22] MEDS: DITROPAN 5 MG PO (20:29)
[2025-01-23] VITALS (9 sets, daily range): BP systolic 104–155; BP diastolic 44–69; PULSE 62–66; O2SAT 96–97; BMI 56.8
[2025-01-23] MEDS: MUCINEX 600 MG PO (08:20)
[2025-01-23] MEDS: TYLENOL 1000 MG PO ×2 (08:20→20:33)
[2025-01-23] MEDS: NSS (PRESERVATIVE FREE) 10 ML IV ×2 (08:20→20:33)
[2025-01-23] MEDS: PROTONIX IV 40 MG IV ×2 (08:20→20:33)
[2025-01-23] MEDS: DITROPAN 5 MG PO ×2 (08:21→20:32)
[2025-01-23] MEDS: MYCOSTATIN CREAM 1 APPLIC TOPICAL ×2 (08:21→20:37)
[2025-01-23] MEDS: TOPROL XL 25 MG PO (08:21)
[2025-01-23] MEDS: CYMBALTA DELAYED RELEASE 20 MG PO (08:21)
[2025-01-23] MEDS: DESENEX/MITRAZOL/ZEASORB 1 APPLIC TOPICAL (08:21)
[2025-01-23] MEDS: NEURONTIN 100 MG PO ×2 (08:21→20:33)
[2025-01-23 08:23] LABS: Blood Urea Nitrogen 19 mg/dl (7-17); Calcium 8.6 mg/dl (8.4-10.2); Carbon Dioxide 26 mmol/L (22-30); Chloride 106 mmol/L (98-107); Estimated Creatinine Clearance 97 ml/min; Glucose 91 mg/dl (70-99); Potassium 4.3 mmol/L (3.5-5.1); Sodium 137 mmol/L (135-145); eGFR > 60.00
[2025-01-23 08:30] LABS: HDL Cholesterol 66 mg/dl; Iron 30 ug/dl (37-170); LDL Cholesterol, Calculated 30 mg/dl; Very Low Density Lipoprotein 15 mg/dl (0-30)
--- NOTE | 2025-01-23 08:36 | CON.GI ---
Addendum entered and electronically signed by Christopher Ivan MD 01/23/25 20:01:
I saw and examined the patient.
The residents note was reviewed and I agree with the note.
Comment:
Pt is a 84 y/o with a hx of hyperlipidemia, endometrial cancer, PE with IVF with SOB found to be heme pos anemia. Pt denies any specific gi symptom
abd:soft, nontender
impression
iron def anemia
SOB
plan:
optimize Cardiopulm status
follow hgb
if hbg stays stable can do elective outpt egd/colon
if hgb drops can do inpt
consider sources of anemia outside GI tract especially in light of recent fall
Original Note:
Consultation
-
Date/Time Consultation Requested: 01/22/25
Date/Time Consultation Performed: 01/23/2025
Requesting Provider: Ashley Phelan
Performing Provider: Asha Ivan
Reason for Consultation: Anemia
Medical History
Chief Complaint / HPI
Chief Complaint: Shortness of breath for 1 week
History of Present Illness:
Patient is an 84-year-old female with past medical history of hyperlipidemia, hypertension, endometrial cancer ,pulmonary embolism with IVC filter in place, initially had some bleeding with Coumadin and has been on Eliquis from last 2 years with no
episode of bleeding, obstructive sleep apnea on CPAP, oxygen requirement only at night, morbid obesity with a BMI of 56.7. She has been on as needed Bumex which she has not taken for a very long time. She has past surgical history of bilateral
knee replacement and cholecystectomy. She had recent hospital admission and november/2024 for history of fall, with no injury but has residual shoulder pain from that, she was getting PT/OT for that at her independent living facility [facility].
From last 1 week she noticed that she was getting easily tired and was short of breath with the therapy. Yesterday, she had to cancel the therapy because she was too short of breath to even get to the chair from the bed. Her physical therapist
advised her to go to the primary care physician, who then referred the patient to ER for further evaluation.Patient admitted for management of exertional dyspnea secondary to tachyarrhythmia/congestive heart failure. During patient's evaluation, a
hemoglobin of 8.9 with a hematocrit of 30.2 was noticed, Hemoccult test was positive and GI was consulted.
Patient does have issues with bowel movements alternating between constipation and diarrhea. She denies any bleeding from any site, did not notice any dark stools/black stools/hematochezia, nausea, vomiting, bloating, heartburn, issues with
nutrition. She says she eats a well-balanced diet including fruits, vegetables, meat and has no trouble with appetite. She did not have any colonoscopy or endoscopy or blood transfusion in the past. She is unsure of history of colon cancer in
the family. She denies any issues with gluten, dairy and has never noticed blood or mucus in the stool. She denies having any blood transfusions in the past. She has breakdown of skin on right labia and has occasional drops of blood from that due
to friction but otherwise she has never noticed any abnormal bleeding.
She has been on Eliquis from last 2 years for her pulmonary embolism history. She denied any episodes of bleeding from that.
Past Medical History
Past Medical History: Arrhythmias (Atrial flutter/atrial fibrillation), Cancer (Endometrial cancer), HTN, Hypercholesterolemia and Other (Umbilical hernia)
Past Surgical History: Cholecystectomy, Orthopedic and Other (Bilateral knee replacement)
Social History
Tobacco: Former Smoker
Alcohol: None
Drug: None
Personal: Single
Living: Other (Independent living facility [facility])
Employment: Not Employed
Family History
Family History: Reviewed & Not Pertinent
Allergies / Home Medications
Allergy/AdvReac Type Severity Reaction Status Date / Time
codeine Allergy Unknown Verified 01/22/25 13:11
latex Allergy Unknown Verified 01/22/25 13:11
morphine Allergy Unknown Verified 01/22/25 13:11
Penicillins Allergy Unknown Verified 01/22/25 13:11
�Medication �Instructions �Recorded
atorvastatin 10 mg tablet 10 mg PO HS High cholesterol 04/19/20
metoprolol succinate 25 mg 25 mg PO DAILY Blood pressure 04/19/20
tablet,extended release 24 hr
apixaban 5 mg tablet (Eliquis) 5 mg PO BID Blood clot 09/21/22
prevention/tx
cyanocobalamin (vitamin B-12) 1,000 mcg PO MOWEFR Supplement 09/21/22
1,000 mcg tablet
levocetirizine 5 mg tablet (Xyzal) 5 mg PO HS Allergies 09/21/22
oxybutynin chloride 10 mg 10 mg PO HS Urinary Issue 02/24/23
tablet,extended release 24 hr
acetaminophen 500 mg tablet 1,000 mg PO BID Pain 11/13/24
(Tylenol Extra Strength)
Calcium 600 + D(3) 1 tab PO BID Supplement 01/22/25
duloxetine 20 mg capsule,delayed 20 mg PO DAILY Mental 01/22/25
release Health/Anxiety
gabapentin 100 mg capsule 100 mg PO BID Pain 01/22/25
guaifenesin 600 mg tablet, 600 mg PO DAILY Cough 01/22/25
extended release 12 hr (Mucinex)
miconazole nitrate 2 % topical 1 applic topical DAILY under B/L 01/22/25
powder breasts
nystatin 100,000 unit/gram topical 1 applic topical BID left leg 01/22/25
cream
Review of Systems
-
All other systems: A 12 pt ROS was Negative except as stated above in HPI
Vital Signs
Temp Pulse Resp BP Pulse Ox
98.4 F 64 16 128/44 92
01/23/25 07:40 01/23/25 07:40 01/23/25 07:40 01/23/25 07:40 01/23/25 07:40
Physical Exam
Exam
General: Other (Morbidly obese, BMI 56.7, breathing on 4 L of oxygen)
Respiratory: Rales and Other (Bilateral decreased breath sounds at lung bases)
Cardiac: S1/S2 and Peripheral Edema
GI: Soft, Non Tender, Normal Bowel Sounds and Other (Obese abdomen)
Genito-urinary: Other (Breakdown of skin on right labia)
Musculoskeletal: No Clubbing and Other (Bilateral pedal edema with stasis dermatitis, onycholysis, pedal pulse and posterior tibial pulse palpable)
Skin: Warm (Red moist skin in skin folds, stasis dermatitis)
Neuro: Awake and Nonfocal/Grossly Intact
Psych: Calm
Results
WBC Cancelled 01/23/25 06:57
Hgb Cancelled 01/23/25 06:57
Hct Cancelled 01/23/25 06:57
MCV Cancelled 01/23/25 06:57
Plt Count Cancelled 01/23/25 06:57
Absolute Neuts (auto) 5.1 10^3/uL (1.4-6.5) 01/22/25 13:12
Sodium 137 mmol/L (135-145) 01/23/25 06:57
Potassium 4.3 mmol/L (3.5-5.1) 01/23/25 06:57
Chloride 106 mmol/L (98-107) 01/23/25 06:57
Carbon Dioxide 26 mmol/L (22-30) 01/23/25 06:57
BUN 19 mg/dl (7-17) H 01/23/25 06:57
Creatinine 0.6 mg/dL (0.6-1.0) 01/23/25 06:57
Calcium 8.6 mg/dl (8.4-10.2) 01/23/25 06:57
Total Bilirubin 0.6 mg/dl (0.2-1.3) 01/22/25 13:12
AST 16 U/L (14-36) 01/22/25 13:12
ALT 10 U/L (0-35) 01/22/25 13:12
Alkaline Phosphatase 108 U/L (38-126) 01/22/25 13:12
Diagnostic Image Results:
Chest x-ray 01/22/2025
No consolidation, effusion, or pneumothorax. There is some vascular congestion. Diffuse mildly increased interstitial opacity suggesting mild interstitial edema. There is moderate cardiomegaly. There is suggested enlargement at the level of main
pulmonary artery suggesting possible pulmonary arterial hypertension. The spinal silhouette otherwise within normal limits. No acute osseous abnormality is seen. Advanced degenerative changes left shoulder.
Prior GI Procedures:
EGD: None
Colonoscopy: None
Assessment / Plan
-
Impression
Ms. Ramsay is an 84-year-old female, admitted for exertional dyspnea most likely secondary to congestive heart failure. GI consulted for anemia/Hemoccult positive.
Exertional dyspnea-acute hypoxic respiratory failure-currently on 4 L of oxygen
Morbid obesity
Atrial flutter
Hypertension
Normocytic hypochromic anemia
Assessment/plan
# Normocytic hypochromic anemia
No obvious source of bleeding, denies any melena/hematochezia/hematemesis
No issues with nutrition
No endoscopy/colonoscopy available to review
Continue PPIs
Follow iron studies
Follow vitamin B12 and folate levels
Send ESR/CRP
Stool studies
Restrict any red-colored foods in diet/avoid NSAIDs
Continue to trend H/H
Colonoscopy and endoscopy once patient is stabilized
#IBS
Stable
Manage symptomatically
DVT prophylaxis-SCDs
Code status-DNR
-
-
Thank you for consultation and allowing me to participate in the patient's care. Please call the personnel generalist manager GI physician during the after hours with any questions or concerns.
[2025-01-23 08:40] LABS: Total Iron Binding Capacity 330 ug/dl (265-497)
[2025-01-23 08:42] LABS: Ferritin 9.0 ng/ml (11.1-264.0)
[2025-01-23 08:56] LABS: Vitamin B12 > 1000 pg/ml (239-931)
[2025-01-23 09:37] LABS: Hematocrit 28.1 % (37.0-47.0); Hemoglobin 8.4 g/dL (12.0-16.0); Mean Corp Hgb Conc. 29.9 g/dL (33.0-37.0); Mean Corpuscular Volume 82.4 fL (81.0-99.0); Platelet Count 286 10^3/uL (130-400); Red Cell Dist. Width 15.8 % (11.5-14.5)
--- NOTE | 2025-01-23 10:10 | CARDSERVLU ---
Echocardiogram with [facility] completed after protocol screening completed. Allergies verified.
Patent IV site: _Right median antecubital 20 G PC____
IV site flushed with 0.9% NaCl pre and post administration.
Diluted bolus method utilized to enhance visualization of ventricular alexander.
Total volume given: _3___ mL
Patient tolerated all procedures well without complications.
[2025-01-23 10:12] LABS: C-Reactive Protein 11.70 mg/L (0.0-10.00)
[2025-01-23 10:36] LABS: Folate 8.8 ng/ml (2.76-20)
[2025-01-23] MEDS: ELIQUIS 5 MG PO ×2 (11:03→20:32)
[2025-01-23] MEDS: BUMEX 1 MG PO (11:03)
--- NOTE | 2025-01-23 11:55 | WOUNDNOTE ---
WON RN note: Patient admitted with pulmonary edema.
See H&P for complete history.
PMH: Obesity, double knee replacements, PE on Coumadin, sleep apnea, home o2 at night with Cpap, endometrial cancer, internal radiation, anxiety and depression, HTN.
Wound Location and type/assessment: Patient known to service, last seen for MASD in skin folds and Leg ulcers. Lower legs now intact, pink patches of skin distally, heels intact. Same MASD in skin folds and small superficial ulcer on vulva from
moisture and not being able to clean self properly. Patient confirmed she does her own bathing and skin care, uses fungal powder after bathing. PT ambulated patient to [facility], sacrum intact, mild MASD in gluteal cleft. Nurse Elizabet needed to
assess skin folds and Vulva.
Appetite: Good.
Pressure redistribution devices in place: On [employer], gets oob with walker and assist.
Plan:Continue fungal powder to skin folds and applied Calazime barrier cream to vulva ulcer and surrounding area.
Will confirm orders with hospitalist and update nurse. Updated care plan and will follow as needed.
Note to case management of equipment requested for discharge: Caregivers to assist with bathing.
[2025-01-23 13:21] LABS: Troponin I 0.024 ng/ml
--- NOTE | 2025-01-23 14:11 | W.PN.HOSP.TC ---
Today's Communication/Plan
-
resume diuresis and monitor
pt/ot
Assessment / Plan
Assessment / Plan
Physical Exam
Exam
General: Other (Morbidly obese, BMI 56.7, breathing on 4 L of oxygen)
Respiratory: Rales and Other (Bilateral decreased breath sounds at lung bases)
Cardiac: S1/S2 and Peripheral Edema
GI: Soft, Non Tender, Normal Bowel Sounds and Other (Obese abdomen)
Genito-urinary: Other (Breakdown of skin on right labia)
Musculoskeletal: No Clubbing and Other (Bilateral pedal edema with stasis dermatitis, onycholysis, pedal pulse and posterior tibial pulse palpable)
Skin: Warm (Red moist skin in skin folds, stasis dermatitis)
Neuro: Awake and Nonfocal/Grossly Intact
Impression
Ms. Ramsay is an 84-year-old female, admitted for exertional dyspnea - most likely deconditioning +/- Acute CHF exacerbation (non compliant with diuretics)
Morbid obesity
Hypertension
Normocytic hypochromic anemia
Assessment/plan
#Dyspnea on exertion
#Acute HFpEF - non compliance with bumex
-most likely deconditioning +/- Acute HFpEF
- imaging and BNP unreliable with high BMI
-CT PE series negative
-Incentive tracie
-Monitor hgb for possible symptomatic anemia
-ECHO - EF 60-65%
-Resume Bumex; 1mg IV bumex today
-F/u trops
# Normocytic hypochromic anemia
#Iron deficiency anemia
No obvious source of bleeding, denies any melena/hematochezia/hematemesis
GI was consulted
Should have colonoscopy outpatient
Monitor HGb
Continue PPIs
Restrict any red-colored foods in diet/avoid NSAIDs
Colonoscopy once patient is stabilized outpt
#IBS
Stable
Manage symptomatically
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
#Morbid obesity
# hypertension cont home meds
#obstructive sleep apnea -CPAP at night
#hyperlipidemia - statin
#umbilical hernia
#chronic ambulatory dysfunction
#osteoarthritis
#endometrial cancer status post radiation
DVT prophylaxis-Eliquis
Code status-DNR
Total time spent on today's encounter was 50 minutes which included time spent in counseling the patient/family regarding diagnosis and treatment plan as listed above, goals of care, and symptom management. Case was discussed with nursing staff,
specialists, and care coordinators/case management. All labs and imaging personally reviewed by me. Remainder the time spent in detailed review of previous records, lab data, imaging, and other medical provider documentation.
Anticipated Discharge: 24 - 48 hours
Subjective/Interval History
-
Date of Service: January 23, 2025
sob still present
Objective Data
-
Labs:
Laboratory Results
01/23/25 01/23/25
06:57 09:03
WBC Cancelled 5.7
Hgb Cancelled 8.4 L
Hct Cancelled 28.1 L
Plt Count Cancelled 286
Sodium 137
Potassium 4.3
Chloride 106
Carbon Dioxide 26
BUN 19 H
Creatinine 0.6
Glucose 91
Calcium 8.6
Vital Signs:
Vital Signs
Temp Pulse Resp BP Pulse Ox
98.0 F 58 16 104/66 97
01/23/25 11:30 01/23/25 11:30 01/23/25 11:30 01/23/25 11:30 01/23/25 11:30
I&O
01/22/25 01/23/25 01/24/25
06:59 06:59 06:59
Intake Total 480 / 480
Output Total 900 / 900
Balance -420 / -420
Review of Systems
-
History Source: Patient
All other systems: Not reviewed unless documented
Physical Exam
-
General: Well Developed and Well Nourished
HEENT: Normocephalic
Respiratory: Clear to Auscultation
Cardiac: Regular Rhythm
GI: Soft and Nontender
Genito-urinary: No Costovertebral Tender
Musculoskeletal: No Clubbing
Skin: Warm
Neuro: Awake, Alert, Oriented and AO x 3
Hematologic / Lymphatic: No Lymphadenopathy
Psych: Calm
Data Reviewed
-
Labs: Labs Reviewed by me
[2025-01-23] MEDS: BUMEX 1 MG IV (14:44)
[2025-01-23 20:30] LABS: Troponin I 0.020 ng/ml
[2025-01-23] MEDS: LIPITOR 10 MG PO (20:33)
[2025-01-23] MEDS: ZYRTEC 10 MG PO (20:33)
[2025-01-24] VITALS (7 sets, daily range): BP systolic 108–146; BP diastolic 36–54; PULSE 54; O2SAT 98; BMI 55.6
[2025-01-24 08:56] LABS: Hematocrit 28.1 % (37.0-47.0); Hemoglobin 8.4 g/dL (12.0-16.0); Mean Corp Hgb Conc. 29.9 g/dL (33.0-37.0); Mean Corpuscular Volume 81.7 fL (81.0-99.0); Platelet Count 298 10^3/uL (130-400); Red Cell Dist. Width 15.8 % (11.5-14.5)
[2025-01-24 09:23] LABS: ALT (SGPT) < 10 U/L (0-35); AST (SGOT) 16 U/L (14-36); Albumin 3.1 g/dl (3.5-5.0); Alkaline Phosphatase 99 U/L (38-126); Blood Urea Nitrogen 22 mg/dl (7-17); Calcium 8.8 mg/dl (8.4-10.2); Carbon Dioxide 37 mmol/L (22-30); Chloride 99 mmol/L (98-107); Estimated Creatinine Clearance 72 ml/min; Glucose 101 mg/dl (70-99); Potassium 3.9 mmol/L (3.5-5.1); Sodium 137 mmol/L (135-145); Total Protein 5.5 g/dl (6.3-8.2); eGFR > 60.00
[2025-01-24] MEDS: DESENEX/MITRAZOL/ZEASORB 1 APPLIC TOPICAL (09:23)
[2025-01-24] MEDS: NSS (PRESERVATIVE FREE) 10 ML IV ×2 (09:23→21:33)
[2025-01-24] MEDS: TOPROL XL 25 MG PO (09:24)
[2025-01-24] MEDS: NEURONTIN 100 MG PO ×2 (09:24→21:33)
[2025-01-24] MEDS: CYMBALTA DELAYED RELEASE 20 MG PO (09:24)
[2025-01-24] MEDS: TYLENOL 1000 MG PO ×2 (09:24→21:33)
[2025-01-24] MEDS: PROTONIX IV 40 MG IV ×2 (09:24→21:33)
[2025-01-24] MEDS: MUCINEX 600 MG PO (09:24)
[2025-01-24] MEDS: ELIQUIS 5 MG PO ×2 (09:24→21:32)
[2025-01-24] MEDS: DITROPAN 5 MG PO ×2 (09:24→21:32)
[2025-01-24] MEDS: BUMEX 1 MG PO (09:25)
[2025-01-24] MEDS: MYCOSTATIN CREAM 1 APPLIC TOPICAL ×2 (09:32→21:32)
[2025-01-24 09:35] LABS: Troponin I 0.030 ng/ml
--- NOTE | 2025-01-24 10:39 | W.PN.GI.CBS2 ---
Today's Communication / Plan
-
no inpatient w/u unless active bleeding
Assessment / Plan
-
Impression
Ms. Ramsay is an 84-year-old female, admitted for exertional dyspnea most likely secondary to congestive heart failure. GI consulted for anemia/Hemoccult positive.
Exertional dyspnea-acute hypoxic respiratory failure-currently on 4 L of oxygen
Morbid obesity
Atrial flutter
Hypertension
Normocytic hypochromic anemia
Assessment/plan
- pt being optimized in terms of cardiac status
- hgb stable.
- iron def anemia can be addressed as an outpatient
d/w Dr. Berumen
will sign off call with questions
Subjective
Subjective
Date of Service: January 24, 2025
Pt denies abdominal pain or bleeding
Objective
Data Reviewed
Laboratory Data:
Laboratory Results
01/24/25 07:56
01/24/25 07:56
Laboratory Results
Phosphorus 4.1 mg/dl (2.5-4.5) 01/24/25 07:56
Total Bilirubin 0.6 mg/dl (0.2-1.3) 01/24/25 07:56
AST 16 U/L (14-36) 01/24/25 07:56
ALT < 10 U/L (0-35) 01/24/25 07:56
Alkaline Phosphatase 99 U/L (38-126) 01/24/25 07:56
Vital Signs and I&O:
Vital Signs
Temp Pulse Resp BP Pulse Ox
98.3 F 63 20 146/54 95
01/24/25 07:25 01/24/25 07:25 01/24/25 07:25 01/24/25 07:25 01/24/25 07:25
I&O
01/23/25 01/24/25 01/25/25
06:59 06:59 06:59
Intake Total 480 / 480
Output Total 900 / 900
Balance -420 / -420
Physical Exam
Physical Exam
GI: Soft, Non Distended and Non Tender
--- NOTE | 2025-01-24 12:39 | W.PN.HOSP.TC ---
Today's Communication/Plan
-
iv bumex today
incentive tracie
Assessment / Plan
Assessment / Plan
Physical Exam
Exam
General: Other (Morbidly obese, BMI 56.7, breathing on 4 L of oxygen)
Respiratory: Rales and Other (Bilateral decreased breath sounds at lung bases)
Cardiac: S1/S2 and Peripheral Edema
GI: Soft, Non Tender, Normal Bowel Sounds and Other (Obese abdomen)
Genito-urinary: Other (Breakdown of skin on right labia)
Musculoskeletal: No Clubbing and Other (Bilateral pedal edema with stasis dermatitis, onycholysis, pedal pulse and posterior tibial pulse palpable)
Skin: Warm (Red moist skin in skin folds, stasis dermatitis)
Neuro: Awake and Nonfocal/Grossly Intact
Impression
Ms. Ramsay is an 84-year-old female, admitted for exertional dyspnea - most likely deconditioning +/- Acute CHF exacerbation (non compliant with diuretics)
Morbid obesity
Hypertension
Normocytic hypochromic anemia
Assessment/plan
#Hypoxia
#Dyspnea on exertion
#Acute HFpEF - non compliance with bumex
-most likely deconditioning +/- Acute HFpEF; more than likely component of restrictive disease as well
- Hypxic to 79% upon ambulation today
-imaging and BNP unreliable with high BMI
-CT PE series negative
-Incentive tracie
-Monitor hgb for possible symptomatic anemia
-ECHO - EF 60-65%
-Resume Bumex; 1mg IV bumex today again
-F/u trops
-Pulm and PFTs outpt
# Normocytic hypochromic anemia
#Iron deficiency anemia
No obvious source of bleeding, denies any melena/hematochezia/hematemesis
GI was consulted
Should have colonoscopy outpatient
Monitor HGb
Continue PPIs
Restrict any red-colored foods in diet/avoid NSAIDs
Colonoscopy once patient is stabilized outpt
#IBS
Stable
Manage symptomatically
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
#Morbid obesity
# hypertension cont home meds
#obstructive sleep apnea -CPAP at night
#hyperlipidemia - statin
#umbilical hernia
#chronic ambulatory dysfunction
#osteoarthritis
#endometrial cancer status post radiation
DVT prophylaxis-Eliquis
Code status-DNR
Anticipated Discharge: Within 24 hours
Subjective/Interval History
-
Date of Service: January 24, 2025
feels better but still hypoxic to 79% upon ambulation
Objective Data
-
Labs:
Laboratory Results
01/24/25
07:56
WBC 6.5
Hgb 8.4 L
Hct 28.1 L
Plt Count 298
Sodium 137
Potassium 3.9
Chloride 99
Carbon Dioxide 37 H
BUN 22 H
Creatinine 0.8
Glucose 101 H
Calcium 8.8
Total Bilirubin 0.6
AST 16
ALT < 10
Alkaline Phosphatase 99
Vital Signs:
Vital Signs
Temp Pulse Resp BP Pulse Ox
98.4 F 64 20 141/49 94
01/24/25 11:40 01/24/25 11:40 01/24/25 11:40 01/24/25 11:40 01/24/25 11:40
I&O
01/23/25 01/24/25 01/25/25
06:59 06:59 06:59
Intake Total 480 / 480
Output Total 900 / 900
Balance -420 / -420
Review of Systems
-
History Source: Patient
All other systems: Not reviewed unless documented
Physical Exam
-
General: Well Developed and Well Nourished
HEENT: Normocephalic
Respiratory: Clear to Auscultation
Cardiac: Regular Rhythm
GI: Soft and Nontender
Genito-urinary: No Costovertebral Tender
Musculoskeletal: No Clubbing
Skin: Warm
Neuro: Awake, Alert, Oriented and AO x 3
Hematologic / Lymphatic: No Lymphadenopathy
Psych: Calm
[2025-01-24] MEDS: BUMEX 1 MG IV (13:51)
--- NOTE | 2025-01-24 15:47 | CM ---
Met with patient to obtain information for assessment. Patient stated that she lives in an apartment in independent living at [facility]. She stated thta she has [employer] come in 3x a week for 4 hours to assist her with her personal care,
ADLs, bathing and dressing. They do the laundry, housekeeping, cooking and cleaning. She has o2 at home and a CPAP. She also has a rollator, and an electric w/c.
Patient's Pharmacy is [facility] [phone]
Her PCP is [facility].
Plan: Case management will continue to follow and assist with discharge planning. Home, will watch for VN needs.
[2025-01-24] MEDS: LIPITOR 10 MG PO (21:34)
[2025-01-24] MEDS: ZYRTEC 10 MG PO (21:34)
[2025-01-24] MEDS: FLUSH (NSS) 1 FLUSH IV (21:34)
[2025-01-25 03:44] VITALS: BP 151/83
[2025-01-25 05:04] VITALS: BMI 56.1
[2025-01-25 06:41] LABS: Hematocrit 27.5 % (37.0-47.0); Hemoglobin 8.2 g/dL (12.0-16.0); Mean Corp Hgb Conc. 29.8 g/dL (33.0-37.0); Mean Corpuscular Volume 82.8 fL (81.0-99.0); Platelet Count 281 10^3/uL (130-400); Red Cell Dist. Width 15.7 % (11.5-14.5)
[2025-01-25 07:19] LABS: ALT (SGPT) < 10 U/L (0-35); AST (SGOT) 15 U/L (14-36); Albumin 3.0 g/dl (3.5-5.0); Alkaline Phosphatase 91 U/L (38-126); Blood Urea Nitrogen 27 mg/dl (7-17); Calcium 8.6 mg/dl (8.4-10.2); Carbon Dioxide 36 mmol/L (22-30); Chloride 97 mmol/L (98-107); Estimated Creatinine Clearance 64 ml/min; Glucose 109 mg/dl (70-99); Potassium 3.9 mmol/L (3.5-5.1); Sodium 137 mmol/L (135-145); Total Protein 5.4 g/dl (6.3-8.2); eGFR > 60.00
[2025-01-25 07:35] VITALS: BP 144/56
[2025-01-25] MEDS: NSS (PRESERVATIVE FREE) 10 ML IV (09:06)
[2025-01-25] MEDS: PROTONIX IV 40 MG IV (09:06)
[2025-01-25] MEDS: BUMEX 1 MG PO (09:06)
[2025-01-25] MEDS: NEURONTIN 100 MG PO ×2 (09:06→20:04)
[2025-01-25] MEDS: TYLENOL 1000 MG PO ×2 (09:07→20:04)
[2025-01-25] MEDS: ELIQUIS 5 MG PO ×2 (09:07→20:04)
[2025-01-25] MEDS: MUCINEX 600 MG PO (09:07)
[2025-01-25] MEDS: DITROPAN 5 MG PO ×2 (09:07→20:04)
[2025-01-25] MEDS: TOPROL XL 25 MG PO (09:07)
[2025-01-25] MEDS: CYMBALTA DELAYED RELEASE 20 MG PO (09:07)
[2025-01-25] MEDS: MYCOSTATIN CREAM 1 APPLIC TOPICAL (09:12)
[2025-01-25] MEDS: DESENEX/MITRAZOL/ZEASORB 1 APPLIC TOPICAL (09:18)
[2025-01-25 11:20] VITALS: BP 133/54
[2025-01-25 11:58] LABS: B.E. 11.8 mmol/L; HCO3 37.8 mmol/L (21-28); O2 Saturation % 96.1 % (94-98); PCO2 57 mmHg (32-35); PO2 71 mmHg (83-108)
[2025-01-25 11:59] LABS: O2 Therapy 11
--- NOTE | 2025-01-25 14:21 | W.PN.HOSP.TC ---
Addendum entered and electronically signed by Radu Berumen MD 01/26/25 16:31:
[id number]
Original Note:
Today's Communication/Plan
-
PPI
Bumex
Outpt f/u with PFTs, Sleep study, 6MWT
F/u GI, PCP, Cards, Pulm outpt
Assessment / Plan
Assessment / Plan
Physical Exam
Exam
General: Other (Morbidly obese, BMI 56.7, breathing on 4 L of oxygen)
Respiratory: Rales and Other (Bilateral decreased breath sounds at lung bases)
Cardiac: S1/S2 and Peripheral Edema
GI: Soft, Non Tender, Normal Bowel Sounds and Other (Obese abdomen)
Genito-urinary: Other (Breakdown of skin on right labia)
Musculoskeletal: No Clubbing and Other (Bilateral pedal edema with stasis dermatitis, onycholysis, pedal pulse and posterior tibial pulse palpable)
Skin: Warm (Red moist skin in skin folds, stasis dermatitis)
Neuro: Awake and Nonfocal/Grossly Intact
Impression
Ms. Ramsay is an 84-year-old female, admitted for exertional dyspnea - most likely deconditioning +/- Acute CHF exacerbation (non compliant with diuretics)
Morbid obesity
Hypertension
Normocytic hypochromic anemia
Assessment/plan
#Hypoxia
#Dyspnea on exertion
#Acute HFpEF - non compliance with bumex
-most likely deconditioning and likely component of restrictive disease as well
- Requiring 1L; will dc on this
-CT PE series negative
-Incentive tracie
-Monitor hgb for possible symptomatic anemia
-ECHO - EF 60-65%
-Resume Bumex; received 2 doses of 1mg bumex IV
-F/u trops
-Pulm and PFTs, 6MWT, Sleep study outpt
-Will dc on home o2 - wean outpatient
# Normocytic hypochromic anemia
#Iron deficiency anemia
No obvious source of bleeding, denies any melena/hematochezia/hematemesis
GI was consulted
Should have colonoscopy outpatient
Monitor HGb
Continue PPI
Restrict any red-colored foods in diet/avoid NSAIDs
Colonoscopy once patient is stabilized outpt
F/u outpatient GI
#IBS
Stable
Manage symptomatically
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
#Morbid obesity
# hypertension cont home meds
#obstructive sleep apnea -CPAP at night
#hyperlipidemia - statin
#umbilical hernia
#chronic ambulatory dysfunction
#osteoarthritis
#endometrial cancer status post radiation
DVT prophylaxis-Eliquis
Code status-DNR
More than 30 minutes spent in discharge including
Final examination of the patient
Summarizing hospital stay
Instructions for continuing care to all relevant caregivers
Preparation of discharge records, prescriptions, and referral forms
Total time spent (in minutes): 37
Anticipated Discharge: Today
Subjective/Interval History
-
Date of Service: January 25, 2025
on 1L, stable
Objective Data
-
Labs:
Laboratory Results
01/25/25 01/25/25
05:50 11:45
WBC 6.3
Hgb 8.2 L
Hct 27.5 L
Plt Count 281
HCO3 37.8 H
Sodium 137
Potassium 3.9
Chloride 97 L
Carbon Dioxide 36 H
BUN 27 H
Creatinine 0.9
Glucose 109 H
Calcium 8.6
Total Bilirubin 0.6
AST 15
ALT < 10
Alkaline Phosphatase 91
Vital Signs:
Vital Signs
Temp Pulse Resp BP Pulse Ox
98.2 F 68 18 133/54 93
01/25/25 11:20 01/25/25 11:20 01/25/25 11:20 01/25/25 11:20 01/25/25 11:48
I&O
01/24/25 01/25/25 01/26/25
06:59 06:59 06:59
Intake Total 480 / 480
Balance 480 / 480
Review of Systems
-
History Source: Patient
All other systems: Not reviewed unless documented
Physical Exam
-
General: Well Developed and Well Nourished
HEENT: Normocephalic
Respiratory: Clear to Auscultation
Cardiac: Regular Rhythm
GI: Soft and Nontender
Genito-urinary: No Costovertebral Tender
Musculoskeletal: No Clubbing
Skin: Warm
Neuro: Awake, Alert, Oriented and AO x 3
Hematologic / Lymphatic: No Lymphadenopathy
Psych: Calm
Data Reviewed
-
Labs: Labs Reviewed by me
--- NOTE | 2025-01-25 14:25 | W.DS.TRANS ---
DC Summary - Recreation Supervisor
-
Discharge Instructions:
Discharge Diagnosis/Procedures Shortness of breath
Hypoxia
Diet Low Cholesterol,Low Fat,2 Gram Sodium,Restrict
fluids to 48 oz
Additional Activity Continue to use oxygen at rest and ambulation
until seen by pulmonary
Blood Work cbc and cmp in 5-7 days with pcp
Others Tests as per Pulmonary including PFTs, 6MWT, sleep
study
Instructions: *[facility] Heart Failure Instructions
Stand-Alone Forms:
Changes to Home Medications: Yes
Discharge Medications:
DC Medications w/original date entered in [employer]
atorvastatin 10 mg tablet 10 mg PO HS High cholesterol 04/19/20
metoprolol succinate 25 mg tablet,extended release 24 hr 25 mg PO DAILY Blood pressure 04/19/20
apixaban 5 mg tablet (Eliquis) 5 mg PO BID Blood clot prevention/tx 09/21/22
cyanocobalamin (vitamin B-12) 1,000 mcg tablet 1,000 mcg PO MOWEFR Supplement 09/21/22
levocetirizine 5 mg tablet (Xyzal) 5 mg PO HS Allergies 09/21/22
oxybutynin chloride 10 mg tablet,extended release 24 hr 10 mg PO HS Urinary Issue 02/24/23
acetaminophen 500 mg tablet (Tylenol Extra Strength) 1,000 mg PO BID Pain 11/13/24
Calcium 600 + D(3) 1 tab PO BID Supplement 01/22/25
duloxetine 20 mg capsule,delayed release 20 mg PO DAILY Mental Health/Anxiety 01/22/25
gabapentin 100 mg capsule 100 mg PO BID Pain 01/22/25
guaifenesin 600 mg tablet, extended release 12 hr (Mucinex) 600 mg PO DAILY Cough 01/22/25
miconazole nitrate 2 % topical powder 1 applic topical DAILY under B/L breasts 01/22/25
nystatin 100,000 unit/gram topical cream 1 applic topical BID left leg 01/22/25
bumetanide 1 mg tablet 1 mg PO DAILY 30 days #30 tabs 01/25/25
pantoprazole 40 mg tablet,delayed release 40 mg PO DAILY #30 tabs 01/25/25
Home Medication Changes
bumetanide 1 mg tablet 1 mg PO DAILY 30 days #30 tabs 01/25/25
pantoprazole 40 mg tablet,delayed release 40 mg PO DAILY #30 tabs 01/25/25
Pending Results: No
[2025-01-25 15:30] VITALS: BP 136/50
--- NOTE | 2025-01-25 17:21 | CM ---
Spoke with attending who stated that patient is medically stable for discharge. Met with patient who stated that she already has a concentrator at home. Placed a call to [facility] and was advised that patient can use her concentrator at night
for her CPAP and use it for her o2 during the day. RN updated. She will be sent home with tubing and nasal cannula. Request was made to have portable tanks sent. Patient stated that if she does not receive them, she will call the company on Wednesday
to get one.
Patient stated that she would like VN. Spoke with Debbie in admissions at [facility] who stated that their agency can see her. She was agreeable. Will send referral through [facility].
Plan: Case management will continue to follow and assist with discharge planning. Home with VN.
[2025-01-25] MEDS: PROTONIX IV IV (20:00)
[2025-01-25] MEDS: MYCOSTATIN CREAM TOPICAL (20:00)
[2025-01-25] MEDS: NSS (PRESERVATIVE FREE) IV (20:00)
[2025-01-25 20:10] VITALS: BP 145/50
--- NOTE | 2025-01-25 23:52 | PTCARENOTE ---
Pt aaox3 able to make her needs known. Pt has all her belongings with her & denies of any other discomfort at this time.On oxygen at 2litres. Pt was discharged home by stretcher.No other complaints noted at this time.
== END 2025-01-25 20:34 | disposition home health service (06) | DRG 291 ==
LOC: 4 EAST ACU 16:40
PROVIDERS: Emergency Medicine; Nurse Practitioner Family; ADMITTING PHYSICIAN Hospitalist; ATTENDING PHYSICIAN Internal Medicine; EMERGENCY PHYSICIAN Student in an Organized Health Care Education/Training Program; FAMILY PHYSICIAN Internal Medicine; OTHER PHYSICIAN Internal Medicine
PROC: 5A09457 Assistance with Respiratory Ventilation, 24-96 Consecutive Hours, Continuous Positive Airway Pressure (ICD-10-PCS; 2025-01-22)
DX: I11.0 Hypertensive heart disease with heart failure (principal); I50.31 Acute diastolic (congestive) heart failure; J96.01 Acute respiratory failure with hypoxia; Z68.43 Body mass index [BMI] 50.0-59.9, adult; I48.92 Unspecified atrial flutter; E66.01 Morbid (severe) obesity due to excess calories; D50.9 Iron deficiency anemia, unspecified; E78.00 Pure hypercholesterolemia, unspecified; K42.9 Umbilical hernia without obstruction or gangrene; Z85.42 Personal history of malignant neoplasm of other parts of uterus; K58.2 Mixed irritable bowel syndrome; Z66 Do not resuscitate; Z91.148 Patient's other noncompliance with medication regimen for other reason; Z86.711 Personal history of pulmonary embolism; Z96.653 Presence of artificial knee joint, bilateral; Z87.891 Personal history of nicotine dependence; Z88.5 Allergy status to narcotic agent; Z91.040 Latex allergy status; Z88.0 Allergy status to penicillin; Z79.01 Long term (current) use of anticoagulants; Z79.899 Other long term (current) drug therapy; Z95.828 Presence of other vascular implants and grafts; F41.9 Anxiety disorder, unspecified; I48.91 Unspecified atrial fibrillation
CPT/HCPCS: 36600; 71045; 71275; 80048; 80053; 80061; 82607; 82728; 82746; 82805; 83540; 83550; 83880; 84100; 84484; 85025; 85027; 85652; 86140; 87070; 93005; 93306; 94660; 96374; 96375; 97163; 97167; 97530; 97535; 99285; Q9950; Q9967

== ENCOUNTER → 2025-02-05 13:31 | Outpatient (REF) | payer OTHER, SELFPAY | LOC: HWRAD 13:31 | PROVIDERS: ATTENDING PHYSICIAN Internal Medicine | DX: R06.02 Shortness of breath (principal); D64.9 Anemia, unspecified | CPT/HCPCS: 74176 ==